=== PATIENT | female | born 1975 | race Two or more races ===

== ENCOUNTER 2017-03-18 15:33 | Inpatient (IN) | payer MEDICAID ==
[~2017-03-18] VITALS: Ht 157.5 cm; Wt 77.1 kg
--- NOTE | 2017-03-18 17:29 | PD ---
HPI Chief Complaint Abdominal pain possible contractions Date Seen: Mar 18, 2017 Travel History International Travel<30 Days: No Contact w/Intl Traveler<30Days: No Known Affected Area: No History of Present Illness HPI Patient 41-year-old white female previous section [address] Ferguson'allen who presents for evaluation of pain. Patient was seen by her physician today she had an ultrasound today which showed that she is breech she had her first because the baby was breech she has had some contraction pain no bleeding or ruptured membranes. Baby is active. heart rate tracing is reactive. There are no regular contractions noted. Para: 4 : 6 History Obstetric History Obstetric History 2 vaginal deliveries and one for breech[the last one] Past Surgical History Narrative Surgical 1 Social History Alcohol Use: No Tobacco Use: No Substance Abuse: No Allergies-Medications (Allergen,Severity, Reaction): Coded Allergies: No Known Allergies (Unverified , 03/18/17) Review of Systems General / Constitutional: No: Fever, Weight Gain, Chills, Other Eyes: No: Diploplia, Blurred Vision, Visual changes, Pain, Photophobia HENT: No: Headaches, Vertigo, Lightheadedness Cardiovascular: No: Irregular Rhythm, Chest Pain or Discomfort, Palpitations, Tachycardia, Syncope, Varicosities, Edema, Cyanosis Respiratory: No: Cough, Short of Breath, Other Gastrointestinal: Abdominal Pain, No: Nausea, Vomiting, Diarrhea Genitourinary: No: Decreased Urinary Output, Oliguria Musculoskeletal: No: Limited ROM, Weakness, Cramping, Edema, Pain Skin: No Rash, No Itching, No Dryness, No Lumps, No Change in Pigmentation, No Change in Nails, No Alopecia, No Lesions Neurologic: No: Weakness, Dizziness, Syncope, Focal Abnormalities, Coordination Problem, Headache, Slurred Speech, Seizures Psychiatric: No: Depression, Suicidal Ideations, Homicidal Ideation Endocrine: No: Heat Intolerance, Cold Intolerance, Polydipsia, Polyuria, Other Physical Exam Narrative GENERAL: Well-nourished, well-developed patient. SKIN: Warm and dry. HEAD: Normocephalic and atraumatic. EYES: No scleral icterus. No injection or drainage. ENT: No nasal drainage noted. Mucous membranes pink. Airway patent. NECK: Supple, trachea midline. No JVD. CARDIOVASCULAR: Regular rate and rhythm without murmurs, gallops, or rubs. RESPIRATORY: Breath sounds equal bilaterally. No accessory muscle use. BREASTS: Bilateral exam showed no masses , no retractions, no nipple discharge. ABDOMEN/GI: Abdomen soft, non-tender, bowel sounds present, no rebound, no guarding Gravid to [-39] weeks size Fundal Height: [39-] GENITOURINARY: External Genitalia: intact and normal in appearance BUS glands: [-] Cervix: [-Closed] Dilatation: [-Closed] Effacement: [-] Thick Station: [-] Very high in the pelvis baby is breech there is no pressure on the cervix cervix posterior and almost unreachable Presentation: [Breech-] Membranes: [intact ] Uterine Contractions: [-No regular contractions] FHT's: Category: [1-] Baseline: [-133] Reactive: [yes-] Variability: [mod-] Decels: [-none] EXTREMITIES: No cyanosis or edema. BACK: Nontender without obvious deformity. No CVA tenderness. NEUROLOGICAL: Awake and alert. Motor and sensory grossly within normal limits. Five out of 5 muscle strength in all muscle groups. Normal speech. MDM Interpretation(s) Patient is a 41-year-old white female at 39 weeks of sent over from Dr. Ferguson for evaluation for pain and being breech. The patient just found out she was breech again with this baby today, she was section last time for breech baby. She had an ultrasound showed breech. That she has been evaluated on OB ED she is no regular contractions cervix is closed very high and yes the baby is breech with the head to the maternal right, heart rate tracing is reactive and she is not in labor now Plan Plan discussed the patient with Dr. Roberts is inspector outside production for the group and they will decide if she needs to be delivered tonight or if they want to put that off for Dr. Ferguson to do tomorrow or at the time best suited for the patient Diagnosis Diagnosis: Primary Impression: Breech presentation Additional Impression: 39 weeks gestation of Condition: Stable Tommy Sheth II, MD Mar 18, 2017 17:29
[2017-03-18] MEDS ORDERED: LACTATED RINGER'S 1000 ML INJ 1,000 ML IV ONE (19:12)
[2017-03-18 19:38] LABS: AUTOMATED NEUTROPHIL # 4.6 TH/MM3 (1.8-7.7); BASOPHIL % 0.3 % (0.0-2.0); EOSINOPHIL # 0.1 TH/MM3 (0-0.4); EOSINOPHIL % 1.3 % (0.0-4.0); HEMATOCRIT 35.5 % (35.0-46.0); HEMO FLAGS DIFF FINAL; LYMPH % 28.4 % (9.0-44.0); LYMPHOCYTE # 2.2 TH/MM3 (1.0-4.8); MEAN CELL VOLUME 92.7 FL (80.0-100.0); MEAN CORPUSCULAR HEMOGLOBIN 32.4 PG (27.0-34.0); MONO % 9.4 % (0.0-8.0); NEUT % 60.6 % (16.0-70.0); PLATELET COUNT 135 TH/MM3 (150-450); RED BLOOD COUNT 3.83 MIL/MM3 (4.00-5.30); RED CELL DISTRIBUTION WIDTH 15.8 % (11.6-17.2); WHITE BLOOD COUNT 7.6 TH/MM3 (4.0-11.0)
[2017-03-18] MEDS ORDERED: LACTATED RINGER'S 1000 ML INJ 1,000 ML IV SCH (19:42)
[2017-03-18] MEDS ORDERED: OXYTOCIN 10 UNIT/ML AMP ONE (20:07)
[2017-03-18] MEDS ORDERED: ceFAZolin 2 GM PREMIX 50 ML IV SCH (20:15)
[2017-03-18] MEDS ORDERED: CITRIC ACID-SODIUM CITRATE LIQ 30 ML UDC PO SCH (20:45)
[2017-03-18 21:30] VITALS: BP 101/51; PULSE 76; RESP 18; TEMP 97.9
--- NOTE | 2017-03-18 21:31 | PD.OB.DELI ---
Procedure Note Section Procedure Pre Op Diagnosis term, prior section, breech in office declines version multiparity Post Op Diagnosis: Post Op Diagnosis term, prior section, vertex, multiparity, silent rupture of scar Performed by Rashida Roberts Procedure: Repeat Low Transverse Sec Indication for delivery: Desired elective repeat , malposition Informed consent obtained: For anesthesia, For procedure, Other (foro PPTL) Confirmed correct: Patient, Procedure, Site, Time-out taken Anesthesia: Spinal Medication prior to procedure: As documented in eMAR Monitoring during procedure: Blood pressure monitoring Urinary catheter: Inserted using sterile technique Sterile preparation: Duraprep, In usual fashion Position: Supine with wedge to right side Operative Features Skin Incision: Pfannenstiel Uterine Incision: Low transverse w/knife / blunt ext Membranes Ruptured: Artificially Presentation: Occiput anterior Delivery of : Assisted : Male, Single One Minute : 9 Five Minute : 9 Weight: 7 13 Status of : Viable Placenta delivered: Intact Estimated blood loss: 800 due to [place] chees anterior uterine wall and difficulty reapproximatin Procedure tolerated: Well Maternal Complications: Uterine rupture Maternal Condition: Stable Condition: Stable (dictated) Rashida Roberts MD Mar 18, 2017 21:31
[2017-03-18] MEDS ORDERED: MORPHINE SULFATE PF 5 MG/10 ML VIAL ONE (21:38)
[2017-03-18] MEDS ORDERED: ONDANSETRON HCL 4 MG/2 ML VIAL ONE (21:38)
[2017-03-18 21:45] VITALS: BP 113/58; PULSE 61; RESP 18
[2017-03-18] MEDS ORDERED: ONDANSETRON HCL 4 MG/2 ML VIAL IV PUSH PRN (21:45)
[2017-03-18] MEDS ORDERED: ACETAMINOPHEN 1000 MG/100 ML VIAL IV ONE ×2 (21:45→22:31)
[2017-03-18] MEDS ORDERED: SODIUM CHLORIDE 0.9% FLUSH 10 ML FLUSH IV FLUSH PRN (21:45)
[2017-03-18] MEDS ORDERED: ZOLPIDEM TARTRATE 5 MG TAB PO PRN (21:45)
[2017-03-18] MEDS ORDERED: KETOROLAC TROMETHAMINE 60 MG/2 ML (IM) VIAL IM PRN (21:45)
[2017-03-18] MEDS ORDERED: OXYTOCIN 30 UNITS-500ML PREMIX 500 ML IV ONE (21:45)
[2017-03-18 22:00] VITALS: BP 120/59; PULSE 69; RESP 18
[2017-03-18 22:15] VITALS: BP 105/55; PULSE 76; RESP 18
[2017-03-18 22:30] VITALS: BP 108/58; PULSE 63; RESP 18; TEMP 98
[2017-03-18] MEDS: SIMETHICONE 80 MG CHEWABLE TAB PO PRN (23:31)
[2017-03-19] VITALS: BP 110/61; PULSE 66; RESP 18; TEMP 97.9
[2017-03-19] MEDS ORDERED: LACTATED RINGER'S 1000 ML INJ 1,000 ML IV SCH (02:31)
[2017-03-19 04:00] VITALS: BP 96/44; PULSE 64; RESP 16; TEMP 97.9
[2017-03-19] MEDS: SIMETHICONE 80 MG CHEWABLE TAB PO PRN ×3 (06:51→23:18)
[2017-03-19 07:30] LABS: AUTOMATED NEUTROPHIL # 6.9 TH/MM3 (1.8-7.7); BASOPHIL % 0.2 % (0.0-2.0); EOSINOPHIL % 0.3 % (0.0-4.0); HEMATOCRIT 28.7 % (35.0-46.0); HEMO FLAGS DIFF FINAL; LYMPH % 11.6 % (9.0-44.0); MEAN CELL VOLUME 93.5 FL (80.0-100.0); MEAN CORPUSCULAR HEMOGLOBIN 32.4 PG (27.0-34.0); MEAN CORPUSCULAR HGB CONC 34.7 % (32.0-36.0); MONO % 5.9 % (0.0-8.0); PLATELET COUNT 130 TH/MM3 (150-450); RED BLOOD COUNT 3.07 MIL/MM3 (4.00-5.30); RED CELL DISTRIBUTION WIDTH 15.6 % (11.6-17.2); WHITE BLOOD COUNT 8.4 TH/MM3 (4.0-11.0)
[2017-03-19] MEDS ORDERED: OXYTOCIN 30 UNITS-500ML PREMIX 500 ML IV PRN (07:45)
--- NOTE | 2017-03-19 07:52 | HHI.OB ---
Subjective Post Operative Day: 1 Remarks c/o itching Objective Vitals/I&O Vital Signs Date Time Temp Pulse Resp B/P Pulse Ox O2 Delivery O2 Flow Rate FiO2 03/19/17 04:00 97.9 64 16 96/44 03/19/17 00:00 97.9 03/19/17 00:00 97.9 03/19/17 00:00 66 18 110/61 03/19/17 00:00 66 18 110/61 03/19/17 00:00 66 18 110/61 03/18/17 22:30 63 18 03/18/17 22:30 98.0 03/18/17 22:30 108/58 03/18/17 22:15 76 18 105/55 03/18/17 22:00 69 18 120/59 03/18/17 21:45 61 03/18/17 21:45 113/58 03/18/17 21:45 18 03/18/17 21:30 97.9 76 18 101/51 Result Diagram: 03/19/17 0624 Objective Remarks GENERAL: Well-nourished, well-developed patient. CARDIOVASCULAR: Regular rate and rhythm without murmurs, gallops, or rubs. RESPIRATORY: Breath sounds equal bilaterally. No accessory muscle use. ABDOMEN/GI: Abdomen soft, non-tender, bowel sounds present. Incision: dressing Clean, dry and intact. Fundus: Firm, non-tender at umbilicus. GENITOURINARY: Light to moderate bleeding. EXTREMITIES: No cyanosis or edema, non-tender, without signs of DVT. Medications and IVs Current Medications Medications (Trade) Dose Ordered Sig/Lux Route Start Time Stop Time Status Last Admin Lactated Ringer's 1,000 ml @ 150 mls/hr Q6H40M IV 03/18/17 19:42 (Lr 1000 ml Inj) 1,000 ml @ 100 mls/hr Q10H IV 03/19/17 02:31 03/19/17 22:30 03/19/17 04:00 (NS Flush) 2 ml BID IV FLUSH 03/19/17 09:00 (NS Flush) 2 ml UNSCH PRN IV FLUSH 03/18/17 21:45 (Mylicon Chew) 80 mg QID PRN PO 03/18/17 21:45 03/19/17 06:51 (Percocet 5-325 Mg) 1 tab Q4H PRN PO 03/18/17 21:45 (Percocet 5-325 Mg) 2 tab Q4H PRN PO 03/18/17 21:45 (Radha-Colace) 2 tab Q12H PRN PO 03/18/17 21:45 (Ambien) 5 mg HS PRN PO 03/18/17 21:45 (M-M-R Ii Inj) 0.5 ml ONCE ONCE SQ 03/19/17 16:00 03/19/17 16:01 (Boostrix Inj) 0.5 ml ONCE ONCE IM 03/19/17 16:00 03/19/17 16:01 (Zofran Inj) 4 mg Q6H PRN IV PUSH 03/18/17 21:45 03/18/17 23:31 Assessment/Plan Problem List: (1) Breech presentation (2) 39 weeks gestation of (3) delivery delivered Assessment and Plan POD #1 C/S benadryl, OOB, advance diet Discharge Planning routine Attending Attestation pt seen by Karla Vázquez MD Mar 19, 2017 07:52
[2017-03-19] MEDS ORDERED: diphenhydrAMINE HCL 50 MG CAP PO PRN (08:00)
[2017-03-19 08:30] VITALS: BP 100/54; PULSE 80; RESP 18; TEMP 98
[2017-03-19] MEDS ORDERED: SODIUM CHLORIDE 0.9% FLUSH 10 ML FLUSH IV FLUSH SCH (09:00)
[2017-03-19] MEDS: oxyCODONE/ACETAMINOPHEN 5 MG/325 MG TAB PO PRN ×4 (10:17→21:17)
[2017-03-19 14:00] VITALS: BP 97/51; PULSE 80; RESP 18; TEMP 98.1
[2017-03-19] MEDS: DOCUSATE SODIUM 50 MG/SENNA 8.6 MG TAB PO PRN (14:47)
[2017-03-19] MEDS ORDERED: MEASLES, MUMPS, RUBELLA VACCINE 0.5 ML VIAL SQ ONE (16:00)
[2017-03-19] MEDS ORDERED: DIPHTH/TETANUS/ACEL PERTUSSIS (BOOSTER) 0.5 ML VIAL/PFS IM ONE (16:00)
[2017-03-19 21:00] VITALS: BP 107/60; PULSE 94; RESP 20; TEMP 99
[2017-03-19 23:18] VITALS: BP 106/64; PULSE 94; RESP 20; TEMP 97.9
[2017-03-20] MEDS: oxyCODONE/ACETAMINOPHEN 5 MG/325 MG TAB PO PRN ×5 (01:31→19:44)
[2017-03-20 08:00] VITALS: BP 99/55; PULSE 101; RESP 16; TEMP 98.1
[2017-03-20] MEDS: SIMETHICONE 80 MG CHEWABLE TAB PO PRN ×2 (09:37→19:44)
--- NOTE | 2017-03-20 11:16 | HHI.OB ---
Subjective Post Operative Day: 2 Remarks c/o dysuria Objective Vitals/I&O Vital Signs Date Time Temp Pulse Resp B/P Pulse Ox O2 Delivery O2 Flow Rate FiO2 03/20/17 08:00 98.1 101 16 99/55 03/19/17 23:18 97.9 94 20 106/64 03/19/17 23:18 97.9 94 20 106/64 03/19/17 21:00 99.0 94 20 107/60 03/19/17 21:00 99.0 94 20 107/60 03/19/17 14:00 98.1 80 18 97/51 Result Diagram: 03/19/17 0624 Objective Remarks GENERAL: Well-nourished, well-developed patient. CARDIOVASCULAR: Regular rate and rhythm without murmurs, gallops, or rubs. RESPIRATORY: Breath sounds equal bilaterally. No accessory muscle use. ABDOMEN/GI: Abdomen soft, non-tender, bowel sounds present. Incision: Clean, dry and intact. Fundus: Firm, non-tender at umbilicus. GENITOURINARY: Light to moderate bleeding. EXTREMITIES: No cyanosis or edema, non-tender, without signs of DVT. Medications and IVs Current Medications Medications (Trade) Dose Ordered Sig/Lux Route Start Time Stop Time Status Last Admin (Lr 1000 ml Inj) 1,000 ml @ 150 mls/hr Q6H40M IV 03/18/17 19:42 (NS Flush) 2 ml BID IV FLUSH 03/19/17 09:00 (NS Flush) 2 ml UNSCH PRN IV FLUSH 03/18/17 21:45 (Mylicon Chew) 80 mg QID PRN PO 03/18/17 21:45 03/20/17 09:37 (Percocet 5-325 Mg) 1 tab Q4H PRN PO 03/18/17 21:45 03/19/17 21:17 (Percocet 5-325 Mg) 2 tab Q4H PRN PO 03/18/17 21:45 03/20/17 05:35 (Radha-Colace) 2 tab Q12H PRN PO 03/18/17 21:45 03/19/17 14:47 (Ambien) 5 mg HS PRN PO 03/18/17 21:45 (Zofran Inj) 4 mg Q6H PRN IV PUSH 03/18/17 21:45 03/18/17 23:31 (Benadryl) 50 mg Q6H PRN PO 03/19/17 08:00 03/19/17 08:23 Assessment/Plan Problem List: (1) Breech presentation (2) 39 weeks gestation of (3) delivery delivered Assessment and Plan POD #2 C/S benadryl, OOB, advance diet, UA C&S Discharge Planning routine Attending Attestation pt seen by Karla Vázquez MD Mar 20, 2017 11:16
[2017-03-20 11:51] LABS: BLOOD, URINE MOD (NEG); COMMENT (UR) CULT NOT INDICATED; CULTURE IF INDICATED CULT NOT INDICATED; GLUCOSE,URINE NEG (NEG); KETONE, URINE NEG (NEG); MUCUS URINE FEW /lpf (OCC); NITRITE,URINE NEG (NEG); SQUAMOUS EPITHELIAL CELL URINE 1 /hpf (0-5); URINE COLOR YELLOW (YELLW/STRAW)
[2017-03-20] MEDS: DOCUSATE SODIUM 50 MG/SENNA 8.6 MG TAB PO PRN (12:02)
[2017-03-20 19:56] VITALS: BP 103/60; PULSE 94; RESP 18; TEMP 98.3
--- NOTE | 2017-03-20 20:52 | MP ---
cc: GUILLELOPEZRASHIDA DATE OF SURGERY 03/18/17 75 PREOPERATIVE DIAGNOSIS Term with a breech , somewhat unstable lie, occasional contractions, declined version, multiparity, prior section, desired sterility. POSTOPERATIVE DIAGNOSIS Term with a breech , somewhat unstable lie, occasional contractions, declined version, multiparity, prior section, desired sterility. vertex, also noted silent uterine rupture with the incision made above an area where the uterus was paper thin and then spontaneously popped opened leaving a band of tissue that needed to be excised to reapproximate the uterus. PROCEDURE Repeat low transverse segment section and reconstruction of anterior uterine wall and bilateral salpingectomy ANESTHESIA Spinal with Duramorph SURGEON Laure Roberts MD [employer] OB staff FINDINGS Living male with Apgars of eight at one and nine at five from BERNADINE position. Tubes were unremarkable and were removed. Anterior wall of the uterus had the incision I made and then a spontaneous opening below this that was equally as large as the incision. The intervening piece of uterine material needed to be excised so that appropriate approximation of the anterior uterine defect could be performed with multiple additional layers of chromic in running and imbricated layers. Estimated blood loss was about 800-1000. Sponge, instrument, needle count were correct. Mom and baby tolerated the procedure well. It should be noted that the uterus was very large with adenomyosis and fibroids and there was some difficulty even replacing the uterus in the pelvic cavity. It is firm at the end of the case without bleeding, but it is about 2 cm above the umbilicus. PROCEDURE IN DETAIL The patient was appraised of the risks, benefits, expectations of repeat versus attempted version and trial of labor after . She desired a repeat and tubal so she signed consent, was taken to the back, prepped and draped in usual sterile fashion in a dorsal supine position with weight off the vena cava. A Green catheter was placed. She had sequential stockings on. She received 2 grams of Ancef. A time-out was performed with all in attending. She was prepped and draped in usual sterile fashion. After assuring adequate analgesia, a Pfannenstiel incision was made through her previous incision with a knife and carried down through the rectus fascia. The rectus fascia was incised in an elliptical fashion and then it was taken off the rectus muscle superiorly and inferiorly. The peritoneal cavity was spontaneously entered due to her significant rectus diastasis. The uterus was palpated and it was recognized that the baby was head first at this point, but we proceeded. In an attempt to create a bladder flap off the lower uterine segment, I incurred bleeding and made the incision into the intrauterine cavity which was at the point I chose very, very thick with adenomyosis and fibroid. There was brisk bleeding while this was done, but we got into the intrauterine cavity and delivered the baby quickly with the findings as noted above. The cord was clamped x2, cut and the was handed to the neonatology team in attending. The placenta was delivered manually intact and [facility] to [facility]. The very large uterus was exteriorized in exam but it appeared there were two separate defects. The one that I created to deliver the baby and a lower defect right up against the bladder that was equally wide and there is about a 2-3 cm wide and thick area of uterus that I excised so that we could reapproximate the bottom and top of the uterus. This was done in many layers of chromic to ensure hemostasis and was carefully checked when the uterus was replaced in the abdominal cavity. After closing the uterus, the right tube was excised with 0 plain, tied off x3 and removed. The left tube in its entirety was also treated the same and taken away. Then the uterus was replaced in the abdominal cavity with considerable difficulty. It was massaged rigorously, the incision very carefully evaluated. Copious irrigation was done both anteriorly and posteriorly and then the rectus muscle was approximated with interrupted. The fascia was closed with 1-0 plain. The skin was closed with 4-0 Vicryl on a Jhon needle. Estimated blood loss was 800-1000. Sponge, instrument, needle count were correct. She tolerated the procedure well and went to the recovery room in stable condition. Rashida Roberts MD PPC/SA /9:33 PM /8:30 PM
[2017-03-21] MEDS: DOCUSATE SODIUM 50 MG/SENNA 8.6 MG TAB PO PRN (00:32)
[2017-03-21] MEDS: oxyCODONE/ACETAMINOPHEN 5 MG/325 MG TAB PO PRN ×3 (00:32→08:19)
[2017-03-21 08:00] VITALS: BP 103/64; PULSE 92; RESP 18; TEMP 98.2
[2017-03-21] MEDS: SIMETHICONE 80 MG CHEWABLE TAB PO PRN (08:19)
--- NOTE | 2017-03-21 10:05 | HHI.OB ---
Subjective Post Operative Day: 3 Remarks feeling dizzy after 2 percocets at 08:20 on empty stomach, + flatus Objective Vitals/I&O Vital Signs Date Time Temp Pulse Resp B/P Pulse Ox O2 Delivery O2 Flow Rate FiO2 03/21/17 08:00 98.2 92 18 103/64 03/20/17 19:56 94 103/60 03/20/17 19:56 98.3 18 Result Diagram: 03/19/17 0624 Objective Remarks GENERAL: Well-nourished, well-developed patient. CARDIOVASCULAR: Regular rate and rhythm without murmurs, gallops, or rubs. RESPIRATORY: Breath sounds equal bilaterally. No accessory muscle use. ABDOMEN/GI: Abdomen soft, non-tender, bowel sounds present. Incision: Clean, dry and intact. Fundus: Firm, non-tender at umbilicus. GENITOURINARY: Light to moderate bleeding. EXTREMITIES: No cyanosis or edema, non-tender, without signs of DVT. Medications and IVs Current Medications Medications (Trade) Dose Ordered Sig/Lux Route Start Time Stop Time Status Last Admin (Lr 1000 ml Inj) 1,000 ml @ 150 mls/hr Q6H40M IV 03/18/17 19:42 (NS Flush) 2 ml BID IV FLUSH 03/19/17 09:00 (NS Flush) 2 ml UNSCH PRN IV FLUSH 03/18/17 21:45 (Mylicon Chew) 80 mg QID PRN PO 03/18/17 21:45 03/21/17 08:19 (Percocet 5-325 Mg) 1 tab Q4H PRN PO 03/18/17 21:45 03/19/17 21:17 (Percocet 5-325 Mg) 2 tab Q4H PRN PO 03/18/17 21:45 03/21/17 08:19 (Radha-Colace) 2 tab Q12H PRN PO 03/18/17 21:45 03/21/17 00:32 (Ambien) 5 mg HS PRN PO 03/18/17 21:45 (Zofran Inj) 4 mg Q6H PRN IV PUSH 03/18/17 21:45 03/18/17 23:31 (Benadryl) 50 mg Q6H PRN PO 03/19/17 08:00 03/19/17 08:23 Assessment/Plan Problem List: (1) Breech presentation (2) 39 weeks gestation of (3) delivery delivered Assessment and Plan POD #3 C/S pt has no motrin ordered, will order now check CBC, possible discharge this afternoon, hold next dose percocet Discharge Planning routine Attending Attestation pt seen by Karla Vázquez MD Mar 21, 2017 10:05
[2017-03-21] MEDS ORDERED: IBUP-232 PO (10:07)
[2017-03-21] MEDS ORDERED: SENN1TAB PO (10:07)
[2017-03-21] MEDS ORDERED: OXYC1TAB63 PO (10:07)
--- NOTE | 2017-03-21 10:07 | HHI.DCPOC ---
Discharge Care Plan Your Health Problems Are: Pelvic pain Report Symptoms to Your Doctor -Temperature above 100.5 degrees -Redness, of incision or excessive or foul smelling drainage -Unusual pain or calf pain -Increased vaginal bleeding -Painful or difficulty urinating -Feelings of extreme sadness or anxiety after 2 weeks Goals to Promote Your Health * To prevent worsening of your condition and complications * To maintain your health at the optimal level Directions to Meet Your Goals Take your medications as prescribed Follow your dietary instruction Follow activity as directed Ensure plenty of rest for recovery Drink fluids for hydration Keep your appointments as scheduled Take your immunizations and boosters as scheduled If your symptoms worsen call your PCP, if no PCP go to Urgent Care Center or Emergency Room Smoking is Dangerous to Your Health. Avoid second hand smoke Call the 24-hour crisis hotline for domestic abuse at Karla Salas MD Mar 21, 2017 10:07
[2017-03-21] MEDS ORDERED: IBUPROFEN 600 MG TAB PO PRN (10:15)
[2017-03-21 11:23] LABS: HEMATOCRIT 27.7 % (35.0-46.0); MEAN CELL VOLUME 94.3 FL (80.0-100.0); MEAN CORPUSCULAR HEMOGLOBIN 32.4 PG (27.0-34.0); MEAN CORPUSCULAR HGB CONC 34.4 % (32.0-36.0); PLATELET COUNT 167 TH/MM3 (150-450); RED BLOOD COUNT 2.94 MIL/MM3 (4.00-5.30); RED CELL DISTRIBUTION WIDTH 15.5 % (11.6-17.2); REVIEW FLAG FINAL; WHITE BLOOD COUNT 10.1 TH/MM3 (4.0-11.0)
== END 2017-03-21 18:40 | disposition home or self-care (01) | DRG 766 ==
LOC: HOBED 15:33 → H2EB 19:05 → H1EA 23:01
PROVIDERS: ADMIT Obstetrics & Gynecology; ATTEND Obstetrics & Gynecology
PROC: 10D00Z1 Extraction of Products of Conception, Low, Open Approach (ICD-10-PCS; principal; 2017-03-18)
PROC: 0UB70ZZ Excision of Bilateral Fallopian Tubes, Open Approach (ICD-10-PCS; 2017-03-18)
DX: O32.0XX0 Maternal care for unstable lie, not applicable or unspecified (principal); O09.529 Supervision of elderly multigravida, unspecified trimester; O32.1XX0 Maternal care for breech presentation, not applicable or unspecified; O34.211 Maternal care for low transverse scar from previous cesarean delivery; Z37.0 Single live birth; Z3A.39 39 weeks gestation of pregnancy; Z30.2 Encounter for sterilization
CPT/HCPCS: 81001; 82728; 85025; 85027; 85461; 86077; 86850; 86870; 86886; 86900; 86901; 86902; 86920; 86922; 88302; 90384; C1765; J0131; J2274; J2405; J2590; J2790; J3010; J7120; Q0163